=== PATIENT | female | born 1950 | race Caucasian/White ===

== ENCOUNTER 2017-07-20 20:56 | Emergency (ER) | payer MEDICARE ==
--- NOTE | 2017-07-20 21:11 | UC ---
Respiratory Complaint HPI - HPI Summary HPI Summary: 67 year old female with cough. Initial "tickle in throat" that turned into a foreign body sensation in throat, nonproductive cough, and "chest congestion" for three to four days. Nausea with one episode of posttussive vomiting today. Has had 1 stent placed in heart last year. No CP or palpitations. No OLVERA at this time. [ End ] - History of Current Complaint Stated Complaint: COUGH,CHEST CONGESTION,VOMITING Time Seen by Provider: 07/20/17 21:06 Hx Obtained From: Patient Onset/Duration: Gradual Onset Timing: Constant Severity Initially: Mild Severity Currently: Moderate Character: Cough: Productive Aggravating Factors: Nothing Alleviating Factors: Nothing Associated Signs And Symptoms: Positive: URI, Nasal Congestion - Allergies/Home Medications Allergies/Adverse Reactions: Allergies Allergy/AdvReac Type Severity Reaction Status Date / Time Cefaclor [From Ceclor] Allergy Hives Verified 07/20/17 21:03 Hydromorphone [From Dilaudid] Allergy Hallucinati Verified 07/20/17 21:03 ons Home Medications: Home Medications ALPRAZolam TAB* [Xanax TAB*] 0.5 mg PO DAILY 07/20/17 [History Confirmed ] Aspirin EC Low Dose* [Ecotrin EC Low Dose 81 MG*] 81 mg PO DAILY 07/20/17 [ History Confirmed 07/20/17] Bisoprolol TAB* [Zebeta TAB*] 2.5 mg PO DAILY 07/20/17 [History Confirmed ] Clopidogrel TAB* [Plavix TAB*] 75 mg PO DAILY 07/20/17 [History Confirmed ] Cyclobenzaprine TAB* [Flexeril 10 MG TAB*] 10 mg PO TID PRN 07/20/17 [History Confirmed 07/20/17] Dextromethorphan-Guaifenesin [Mucinex Dm Maximum Streng 60-1200 mg] 1 tab PO ONCE 07/20/17 [History Confirmed 07/20/17] Gabapentin CAP(*) [Neurontin 300 CAP(*)] 300 mg PO TID PRN 07/20/17 [History Confirmed 07/20/17] Isosorbide Mononitrate ER TAB* [Imdur ER TAB*] 30 mg PO QPM 07/20/17 [History Confirmed 07/20/17] Lisinopril & Hydrochlorothiazi [Zestoretic 20-25 mg-] 1 tab PO DAILY 07/20/17 [ History Confirmed 07/20/17] Mirabegron (NF) [Myrbetriq (NF)] 12.5 mg PO DAILY 07/20/17 [History Confirmed ] Nitroglycerin TAB 0.4 MG* 0.4 mg SL Q5M PRN 07/20/17 [History Confirmed 07/20/17 ] PARoxetine HCL TAB* [Paxil TAB*] 10 mg PO DAILY 07/20/17 [History Confirmed ] Pravastatin Sodium [Pravachol] 10 mg PO DAILY 07/20/17 [History Confirmed ] Ranitidine TAB (NF) [Zantac TAB (NF)] 150 mg PO BID 07/20/17 [History Confirmed 07/20/17] metFORMIN* [Glucophage 500 MG TAB *] 500 mg PO DAILY 07/20/17 [History Confirmed 07/20/17] PMH/Surg Hx/FS Hx/Imm Hx Previously Healthy: Yes Endocrine History: Diabetes, Dyslipidemia Cardiovascular History: Cardiac Disease, Hypertension Psychological History: Anxiety, Depression - Family History Known Family History: Positive: Diabetes - Social History Occupation: Retired Lives: With Family Alcohol Use: Rare Review of Systems Constitutional: Fatigue ENT: Ear Ache, Nasal Discharge, Sinus Congestion, Sinus Pain/Tenderness Respiratory: Cough All Other Systems Reviewed And Are Negative: Yes Physical Exam Triage Information Reviewed: Yes Appearance: Well-Appearing, No Pain Distress, Well-Nourished Vital Signs Reviewed: Yes Eye Exam: Normal ENT Exam: Normal Dental Exam: Normal Neck exam: Normal Neck: Positive: 1 Respiratory Exam: Normal Cardiovascular Exam: Normal Musculoskeletal Exam: Normal Neurological Exam: Normal Psychological Exam: Normal Skin Exam: Normal Respiratory Course/Dx - Course Course Of Treatment: with risk factors will be aggresive with treatment at this time. RTO if any concerns. - Differential Dx/Diagnosis Differential Diagnosis/HQI/PQRI: Bronchitis, Lower Resp Infection, Sinusitis Provider Diagnoses: Bronchitis Discharge - Discharge Plan Condition: Good Disposition: HOME Prescriptions: Amoxicillin/Clavulanate TAB* [Augmentin TAB 875*] 875 mg PO BID #20 tab Benzonatate [TESSALON 200 MG CAP] 200 mg PO TID #20 cap Patient Education Materials: Acute Bronchitis (ED) Referrals: Ning Rodriguez MD [Primary Care Provider] - 4 Days Additional Instructions: At this time with your risk factors you are to be started on antibiotics to prevent your current illness becoming a pneumonia.
[2017-07-20 21:13] VITALS: BP 139/49
[2017-07-20] MEDS: Amoxicillin/Clavulanate TAB* 875 MG PO ONE (21:30)
== END 2017-07-20 21:45 | disposition home or self-care (01) ==
LOC: UCCORT 20:56
DX: J40 Bronchitis, not specified as acute or chronic (principal); Z88.5 Allergy status to narcotic agent; Z88.1 Allergy status to other antibiotic agents
CPT/HCPCS: 99202; A9270-GY; G0463